=== PATIENT | female | born 1980 | race Native Hawaiian/Other Pacific Islander ===

== ENCOUNTER 2018-06-20 07:38 | Emergency (ER) | payer BC ==
[~2018-06-20] VITALS: Ht 157.5 cm; Wt 48.5 kg
[2018-06-20 08:39] VITALS: BP 112/74; TEMP 98.1
== END 2018-06-20 08:40 | disposition home or self-care (01) ==
LOC: ED 07:38
DX: N39.0 Urinary tract infection, site not specified (principal)
CPT/HCPCS: 81000; 87077; 87086; 87088; 87186; 99282